=== PATIENT | male | born 1980 | race Caucasian/White ===

== ENCOUNTER 2017-12-18 03:01 | Emergency (ER) | payer OTHER ==
[~2017-12-18] VITALS: Ht 172.7 cm; Wt 99.8 kg
[2017-12-18 04:54] LABS: UA SPECIFIC GRAVITY >=1.030 (1.005-1.035); microscopic required? YES; urine erythrocyte 3+ (NEGATIVE)
[2017-12-18 04:55] LABS: BASOPHIL % 0.2 % (0-2); PLATELET COUNT 174 x10^3mcL (130-400); RED CELL DISTRIBUTION WIDTH 13.5 % (11.5-14.5)
[2017-12-18 05:07] LABS: CALCIUM 8.3 mg/dL (8.5-10.1); CHLORIDE SERUM 109 mmol/L (98-107); GFR1 > 60 mL/min; GLUCOSE SERUM 145 mg/dL (74-106); POTASSIUM SERUM 3.5 mmol/L (3.5-5.1); SODIUM SERUM 144 mmol/L (136-145)
[2017-12-18 05:08] LABS: LIPASE 120 IU/L (73-393)
[2017-12-18 05:11] LABS: ALBUMIN 3.6 g/dL (3.4-5.0); BILIRUBIN DIRECT 0.07 mg/dL (0.0-0.2); BILIRUBIN TOTAL 0.26 mg/dL (0.20-1.00); TOTAL PROTEIN, SERUM 6.6 g/dL (6.4-8.2)
[2017-12-18 06:07] VITALS: BP 150/90
== END 2017-12-18 06:07 | disposition home or self-care (01) ==
LOC: ED 03:01
PROVIDERS: Emergency Medicine
DX: N36.8 Other specified disorders of urethra (principal)
CPT/HCPCS: J1885; J2405; J7030

== ENCOUNTER 2019-01-05 15:28 | Emergency (ER) | payer MEDICAID ==
[~2019-01-05] VITALS: Ht 172.7 cm; Wt 97.5 kg
[2019-01-05 15:31] VITALS: BP 145/92; Ht 172.7 cm; Wt 97.5 kg
== END 2019-01-05 17:30 | disposition home or self-care (01) ==
LOC: ED 15:28
DX: R10.32 Left lower quadrant pain (principal); R19.7 Diarrhea, unspecified; I10 Essential (primary) hypertension

== ENCOUNTER 2019-02-16 14:35 | Emergency (ER) | payer OTHER ==
[~2019-02-16] VITALS: Ht 172.7 cm; Wt 98.9 kg
[2019-02-16 14:39] VITALS: Ht 172.7 cm; Wt 98.9 kg
[2019-02-16 15:19] LABS: microscopic required? YES; urine erythrocyte 2+ (NEGATIVE)
[2019-02-16 15:20] LABS: BASOPHIL % 0.2 % (0-2); PLATELET COUNT 189 x10^3mcL (130-400); RED CELL DISTRIBUTION WIDTH 13.5 % (11.5-14.5)
[2019-02-16 15:25] LABS: CALCIUM 8.9 mg/dL (8.5-10.1); CARBON DIOXIDE 30.1 mmol/L (21-32); CHLORIDE SERUM 104 mmol/L (98-107); GFR1 > 60 mL/min; GLUCOSE SERUM 112 mg/dL (74-106); POTASSIUM SERUM 3.7 mmol/L (3.5-5.1); SODIUM SERUM 141 mmol/L (136-145)
[2019-02-16 15:29] LABS: ALBUMIN 3.8 g/dL (3.4-5.0); ALKALINE PHOSPHATASE 75 U/L (46-116); ALT/SGPT 43 U/L (16-63); AMYLASE 51 U/L (25-115); AST/SGOT 15 U/L (15-37); BILIRUBIN TOTAL 0.3 mg/dL (0.20-1.00); LIPASE 133 IU/L (73-393); TOTAL PROTEIN, SERUM 7.8 g/dL (6.4-8.2)
[2019-02-16 16:40] VITALS: BP 145/92
== END 2019-02-16 16:40 | disposition home or self-care (01) ==
LOC: ED 14:35
PROVIDERS: Emergency Medicine
DX: K57.32 Diverticulitis of large intestine without perforation or abscess without bleeding (principal)
CPT/HCPCS: J1885; J2405

== ENCOUNTER 2020-02-01 02:05 | Emergency (ER) | payer OTHER ==
[~2020-02-01] VITALS: Ht 172.7 cm; Wt 102.7 kg
[2020-02-01 02:15] VITALS: Ht 172.7 cm; Wt 102.7 kg
[2020-02-01 03:59] LABS: UA SPECIFIC GRAVITY 1.015 (1.005-1.035); microscopic required? YES; urine erythrocyte 3+ (NEGATIVE)
[2020-02-01 04:28] VITALS: BP 135/73
== END 2020-02-01 04:28 | disposition home or self-care (01) ==
LOC: ED 02:05
PROVIDERS: Emergency Medicine
DX: N20.1 Calculus of ureter (principal)
CPT/HCPCS: J1885

== ENCOUNTER 2020-05-07 19:16 | Emergency (ER) | payer OTHER ==
[~2020-05-07] VITALS: Ht 172.7 cm; Wt 102.3 kg
[2020-05-07 19:36] VITALS: Ht 172.7 cm; Wt 102.3 kg
[2020-05-07 20:42] LABS: BASOPHIL % 0.4 % (0-2); PLATELET COUNT 184 x10^3mcL (130-400); RED CELL DISTRIBUTION WIDTH 13.1 % (11.5-14.5)
[2020-05-07 20:46] LABS: microscopic required? YES; urine erythrocyte 3+ (NEGATIVE)
[2020-05-07 20:56] LABS: CARBON DIOXIDE 29.2 mmol/L (21-32); CHLORIDE SERUM 102 mmol/L (98-107); CREATININE SERUM 1.2 mg/dL (0.7-1.3); GFR1 > 60 mL/min; GLUCOSE SERUM 129 mg/dL (74-106); POTASSIUM SERUM 3.8 mmol/L (3.5-5.1); SODIUM SERUM 136 mmol/L (136-145)
[2020-05-07 20:58] LABS: ALBUMIN 3.7 g/dL (3.4-5.0); ALKALINE PHOSPHATASE 72 U/L (46-116); ALT/SGPT 92 U/L (16-63); AMYLASE 51 U/L (25-115); AST/SGOT 33 U/L (15-37); BILIRUBIN TOTAL 0.2 mg/dL (0.20-1.00); LIPASE 160 IU/L (73-393); TOTAL PROTEIN, SERUM 7.4 g/dL (6.4-8.2)
[2020-05-07 22:49] VITALS: BP 120/73
== END 2020-05-07 22:49 | disposition home or self-care (01) ==
LOC: ED 19:16
PROVIDERS: Emergency Medicine
DX: N20.0 Calculus of kidney (principal)
CPT/HCPCS: J1885; J7030